=== PATIENT | female | born 1930 | race African-American/Black ===

== ENCOUNTER 2016-09-19 09:44 | Inpatient (IN) | payer OTHER, BC ==
[~2016-09-19] VITALS: Ht 149.9 cm; Wt 59.6 kg
--- NOTE | ~2016-09-19 | CARDNUC ---
[facility] Mario [employer] [place] [address] CARDIAC NUCLEAR IMAGING REPORT Name: KANIKA GARSIA Room #: 202-P [facility]#: [id number] Admission: 09/19/16 Attend Phys: Nathalie Bob MD Discharge: 09/20/16 Date of : 34 Date of Service: 09/20/16 1700 Report #: [id number] THIS REPORT FOR: //name// CC: Ron Bob DATE OF SERVICE: 09/20/2016 Myocardial perfusion imaging study using regadenoson. GENDER: Female. STUDY DATE: 09/20/2016. REFERRING DOCTOR: Ron Hutchinson MD. INDICATIONS: Chest pain. CORONARY HISTORY: None. CARDIOVASCULAR RISK FACTORS: Age, hypertension, hyperlipidemia. CARDIAC MEDICATIONS: Lotrel, aspirin and Lipitor. TYPE OF STUDY: The patient underwent a SPECT study. STRESS PROTOCOL: A total of 0.4 mg of regadenoson was injected intravenously, followed by Cardiolite. The patient did not ambulate during the procedure. HEMODYNAMIC DATA: The resting heart rate was 56 beats per minute, with a blood pressure 150/67 mmHg. Following regadenoson, the heart rate increased to 103 beats per minute and systolic blood pressure decreased to 133 mmHg. The patient had symptoms consistent with regadenoson, but no chest discomfort. ELECTROCARDIOGRAM: The resting electrocardiogram revealed sinus rhythm, nonspecific T-wave abnormalities. Following regadenoson, there were no significant arrhythmias or ST segment changes. PERFUSION IMAGING: Myocardial perfusion imaging was performed using Cardiolite, 11.5 mCi for the resting images and 35.4 mCi for the stress images. This was a same-day rest-stress imaging protocol. Gated SPECT images were obtained. Comparison of the post-pharmacologic stress and rest images revealed a mild, fixed defect in the distal anteroapical segment. The gated portion of the study revealed normal global and segmental LV systolic function. The fixed defect in the distal anteroapical segment may be related to a soft tissue artifact. [facility] [place] [address] CARDIAC NUCLEAR IMAGING REPORT Name: KANIKA GARSIA Room #: 202-P [facility] IN .R.#: [id number] Admission: 09/19/16 Attend Phys: Nathalie Bob MD Discharge: 09/20/16 Date of : 32 Date of Service: 09/20/16 170 Report #: [id number] IMPRESSION: 1. Clinical response, nondiagnostic. 2. Stress ECG response, nonischemic. 3. Perfusion imaging, nonischemic. 4. Ventricular function, normal. CONCLUSION: This study is of low probability for inducible ischemia. There is normal global and segmental LV systolic function. <ELECTRONICALLY SIGNED> By: Gui Phillips MD 09/21/16 1219 99 1720 Gui Phillips MD /tay
--- NOTE | ~2016-09-19 | EKG ---
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: Vanessa TORRES : 1930 Requested By: Moriah Guerrero Order Number: [id number] MD: Mello Staley Measurements Intervals [place] Rate: 76 P: 38 WV: 198 QRS: 52 QRSD: 92 T: 41 QT: 383 QTc: 431 Interpretive Statements Sinus rhythm Probable left atrial enlargement Abnormal R-wave progression, early transition Probable left ventricular hypertrophy Compared to ECG 04/01/2016 10:22:42 No significant changes Electronically Signed On 09-19-2016 16:47:34 SCHOOL STANDARDS COACH by Mello Staley [email or web address] <ELECTRONICALLY SIGNED> By: Mello Staley MD 09/19/16 [phone] 0952 Mello Staley MD /EPI
--- NOTE | ~2016-09-19 | 2DMMODE ---
[facility] [address] 2 D/M-MODE ECHOCARDIOGRAM Name: KANIKA GARSIA Room #: 202-P [facility] IN .R.#: [id number] Admission: 09/19/16 Attend Phys: Nathalie Bob MD Discharge: Date of : 32 Date of Service: 09/20/16 1139 Report #: [id number] THIS REPORT FOR: //name// Transthoracic Echocardiography Ordering physician: Nathalie Bob Referring physician: Ron Hutchinson My N. Neurophysiologist: Missy Merritt Indications/History: Elevated troponin. Hx: HTN, HLP BP: 149 / HR: 51bpm Height: 59in Weight: 131.7lb 76 Study data: M-mode, complete 2D, complete spectral Doppler, and color Doppler. Location: Echo laboratory. Routine. Image quality was adequate. 2D measurements Normal Normal LVID ED 42.4mm 36-57 IVS ED 10.7mm 6-11 LVID ES 29mm 23-40 LVPW ED 9.6mm 6-11 LA volume 41ml/m2 16-28 AoRoot diam 32.2mm 21-37 index ED LVOT diameter 20mm 18-23 Findings: Left ventricle: The cavity size was normal. There was mild focal basal hypertrophy of the septum significance unknown. Systolic function was normal. The estimated ejection fraction was in the range of 60% to 65%. Wall motion was normal. Right ventricle: The cavity size was normal. Systolic function was normal. Right atrium: The atrium was normal in size. Left atrium: The atrium was mildly dilated. Volume index: 41ml/m2 (S). Aortic valve: Mildly thickened, mildly calcified leaflets. Doppler: There was no stenosis. Trivial regurgitation. [place] [address] 2 D/M-MODE ECHOCARDIOGRAM Name: KANIKA GARSIA Room #: 202-P [facility] IN M.R.#: [id number] Admission: 09/19/16 Attend Phys: Nathalie Bob MD Discharge: Date of : 32 Date of Service: 09/20/16 1139 Report #: [id number] Peak velocity: 207.8cm/s (S). Peak gradient: 17.3mm Hg (S). Mitral valve: Mildly calcified annulus. Mildly thickened leaflets . Doppler: There was no evidence for stenosis. Mild regurgitation. Peak E-wave velocity: 73cm/s. Peak gradient: 2.1mm Hg (D). Peak A-wave velocity: 110.5cm/s. Tricuspid valve: Structurally normal valve. Doppler: There was no evidence for stenosis. Mild regurgitation. Regurgitant peak velocity: 272cm/s. Peak RV-RA gradient: 30mm Hg (S). Pulmonic valve: Structurally normal valve. Doppler: There was no evidence for stenosis. Trivial regurgitation. Pericardium: There was no pericardial effusion. Aorta: Aortic root: The aortic root was normal in size. Pulmonary artery: Systolic pressure was estimated to be 35mm Hg. Diastolic function: Doppler parameters are consistent with abnormal left ventricular relaxation (grade 1 diastolic dysfunction). Systemic veins: Inferior vena cava: The vessel was normal in size; the respirophasic diameter changes were in the normal range (= 50%). Conclusions 1. Left ventricle: The cavity size was normal. There was mild focal basal hypertrophy of the septum significance unknown. Systolic function was normal. The estimated ejection fraction was in the range of 60% to 65%. 2. Left atrium: The atrium was mildly dilated. 3. Aortic valve: Mildly thickened, mildly calcified leaflets. Trivial regurgitation. 4. Mitral valve: Mildly calcified annulus. Mildly thickened leaflets . Mild regurgitation. 5. Pulmonic valve: Trivial regurgitation. 6. Tricuspid valve: Mild regurgitation. 7. Pulmonary arteries: Systolic pressure was estimated to be 35mm Hg. <ELECTRONICALLY SIGNED> By: Jamin Hernandez MD 09/20/16 1438 1139 1438 Jamin Hernandez MD /nicki
--- NOTE | ~2016-09-19 | D ---
[facility] [address] DISCHARGE SUMMARY Name: KANIKA GARSIA Room #: 202-P [facility] IN M.R.#: [id number] Admission: 09/19/16 Attend Phys: Nathalie Bob MD Discharge: 09/20/16 Date of : 32 Report #: [id number] THIS REPORT FOR: //name// CC: Ron Bob DATE OF SERVICE: 09/20/2016 DATE OF ADMISSION: 09/19/2016. DATE OF DISCHARGE: 09/20/2016. PRIMARY CARE PHYSICIAN: Ron Hutchinson M.D. DISCHARGE DIAGNOSES: 1. Mid epigastric pain secondary to ileus and constipation. 2. Hypertension. 3. Dyslipidemia. CONSULTATIONS: Cardiology. PROCEDURES: She had a Lexiscan done that was low probability for ischemia. She had an echocardiogram that showed EF of 60% and PA pressure of 35 mmHg. HOSPITAL COURSE: The patient is an 85-year-old female with a history of hypertension and dyslipidemia, who presented to the ER secondary to mid epigastric pain. Please see details of admission dictated by myself on 09/19. Workup in the ER revealed a negative EKG, but a troponin of 0.8. She was admitted for potential cardiac etiology. Cardiology was consulted. She had a Lexiscan that was low probability for ischemia and an echocardiogram that showed no significant abnormalities. Cardiology did not feel that it was cardiac related. Further workup and details were more suggestive of a GI etiology. She had abdominal x-ray that showed primary bowel gas, suggestive of mild ileus without obstruction as well as moderate amount of fecal material, suggestive of constipation. She was started on aggressive bowel regimen and clear liquid diet. Over the course of the 24 hours, her symptoms improved and she was eating better and her symptoms resolved as well. At that point, she was cleared for discharge to home. DISCHARGE DISPOSITION: To home. DISCHARGE PHYSICAL EXAMINATION: VITAL SIGNS: Temperature of 37, pulse of 58 and blood pressure 168/79. GENERAL: She is awake, alert, answering question appropriately, in no acute respiratory distress. [address] [address] DISCHARGE SUMMARY Name: KANIKA GARSIA KASANDRA Room #: 202-P [facility] IN M.R.#: [id number] Admission: 09/19/16 Attend Phys: Nathalie Bob MD Discharge: 09/20/16 Date of : 32 Report #: [id number] HEENT: Normocephalic, atraumatic. Pupils equal. NECK: Supple. CARDIOVASCULAR: Regular rate and rhythm. No murmurs. LUNGS: Clear to auscultation bilaterally. No crackles or wheezes. ABDOMEN: Soft. No distention or tenderness. EXTREMITIES: No edema. NEUROLOGIC: Nonfocal. DISCHARGE MEDICATIONS: Tylenol p.r.n., Lotrel 5/10 one daily, vitamin D 2000 units daily, aspirin 81 daily and atorvastatin 10 daily. DISCHARGE INSTRUCTIONS: Followup CBC, BMP and abdominal x-ray in 1 week. Follow up with primary care in 1 week and to seek immediate medical attention if symptoms worsen or recur or if she has any significant medical concerns. Discharge plan took 35 minutes. <ELECTRONICALLY SIGNED> By: Nathalie Bob MD 11/11/16 1053 1056 1227 Nathalie Bob MD /nt
--- NOTE | ~2016-09-19 | H ---
[facility] [place] [address] HISTORY AND PHYSICAL Name: KANIKA GARSIA Room #: 202-P [facility] IN M.R.#: [id number] Admission: 09/19/16 Attend Phys: Nathalie Bob MD Discharge: 09/20/16 Date of : 32 Report #: [id number] THIS REPORT FOR: //name// CC: Ron Bob DATE OF SERVICE: 09/19/2016 PRIMARY CARE DOCTOR: Ron Hutchinson MD CHIEF COMPLAINT: Midepigastric pain. HISTORY OF PRESENT ILLNESS: The patient is an 85-year-old female with a history of hypertension and dyslipidemia, presented to the ER secondary to midepigastric pain. She indicates that her symptoms started Friday afternoon with discomfort and nausea. She did not make much effort, but then on Friday morning she woke up with similar symptoms. She reported decrease in oral intake as well as chills. Because of her persistent symptoms, she came in this morning. She also reports some left arm aching this morning as well, but no shortness of breath or cold sweats. She denies any diarrhea. Workup in the ER includes a set of cardiac enzymes that were mildly elevated. She denies any prior history of cardiac disease. Since coming to the hospital, she indicates that she is doing much better. She has had minimal interventions since she has been here. She herself feels that she has the stomach flu. PAST MEDICAL HISTORY: Significant for hypertension, dyslipidemia, osteoarthritis and benign right breast lump removed 1953. SURGICAL HISTORY: She has had bilateral TMJ surgery and breast lumpectomy as above. SOCIAL HISTORY: She quit smoking in 67, drinks very rarely, lives independently. Her closest relative is her daughter. FAMILY HISTORY: Mom at 74 of cancer. Father's history is unknown. REVIEW OF SYSTEMS: A 14-point review of systems was conducted, all negative except for above. CURRENT MEDICATIONS: Include Tylenol p.r.n., Lotrel 5/10 mg one daily, aspirin 325 daily, Lipitor 10 daily and vitamin D 2000 units daily. ALLERGIES: None. PHYSICAL EXAMINATION: [facility] [address] [place] [address] HISTORY AND PHYSICAL Name: KANIKA GARSIA KASANDRA Room #: 202-P [facility].#: [id number] Admission: 09/19/16 Attend Phys: Nathalie Bob MD Discharge: 09/20/16 Date of : 32 Report #: [id number] VITAL SIGNS: Temp of 98, pulse of 32, blood pressure 119/65 and O2 sat 98% on room air. GENERAL: She is awake, alert and answering questions appropriately, in no acute respiratory distress. HEENT: Normocephalic and atraumatic. Pupils are equal. NECK: Supple. CARDIOVASCULAR: Regular rate and rhythm. No murmurs. LUNGS: Clear to auscultation bilaterally. No crackles or wheeze. ABDOMEN: Soft. No distention or tenderness. EXTREMITIES: No edema. NEUROLOGIC: Nonfocal. LABORATORIES AND TESTING: Chest x-ray is negative. CBC is negative. BMP is negative. Troponin is slightly elevated. EKG showed no significant abnormalities. ASSESSMENT AND PLAN: 1. Midepigastric pain. Suspect this is largely gastrointestinal related; therefore, we will start her on some Pepcid and gastrointestinal cocktail; however, due to her elevated troponin, we will get serial troponins, continue aspirin, low-lose beta-blockers if she can tolerate it and do a stress testing in the morning. If this is negative, we would likely discharge her home with supportive care for her suspected gastrointestinal issues. 2. Hypertension. I am going to hold her blood pressure medications and put her on a low-dose beta-torres for now, and if her stress test is negative, resume her previous home medication. 3. Dyslipidemia. Continue the same. Check a fasting lipid panel. 4. Deep venous thrombosis prophylaxis with Lovenox. <ELECTRONICALLY SIGNED> By: Nathalie Bob MD 10/15/162009 2049 6107 Nathalie Bob MD /nt
[~2016-09-19 09:44] MED LIST: AMOXICILLIN 50500 M1 PO; APAP500 PO; ASPIRIN325 PO; ASPIRIN81 MG PO; CHERATUSSIN AC118 ML PO; HYDROCHLOROTHIA25 M2 PO; KLOR-CON 1010 MEQ PO; LIPITOR10 MG PO; LISINOPRIL10 MG PO; LOTREL 5-10 MG1 EACH PO; MIRALAX17 GM PO; NASONEX17 GM NS; NORCO 5-325 TA1 EACH PO; POTASSIUM20 PO; TYLENOL EX-STR500 M2 PO; VITAMIN D2000 UNI1 PO
[2016-09-19 09:45] VITALS: BP 130/72
[2016-09-19 10:05] LABS: ABSOLUTE NEUTROPHILS 3.2 thou/uL (1.4-8.2); BASOPHILS 0.6 % (0.0-2.0); EOSINOPHILS 0.5 % (0.0-3.0); HEMATOCRIT 38.7 % (37.0-47.0); HEMOGLOBIN 12.8 gm/dL (12.0-15.0); LYMPHOCYTES 17.3 % (24.0-44.0); MCV 93.7 fL (80.0-100.0); MONOCYTES 4.8 % (1.0-8.0); PLATELET COUNT 227 thou/uL (150-400); POLYS 76.8 % (36.0-66.0); RBC 4.14 mil/uL (4.20-5.00); RDW 12.6 % (10.5-14.5); WBC 4.1 thou/uL (4.0-11.0)
[2016-09-19 10:10] LABS: MANUAL DIFF NO
[2016-09-19 10:13] LABS: CALCIUM 10.1 mg/dL (8.5-10.1); POTASSIUM 3.5 mmol/L (3.5-5.1)
[2016-09-19 10:16] LABS: URINE BILIRUBIN 1+ (Negative); URINE BLOOD TRACE (Negative); URINE COLOR YELLOW; URINE GLUCOSE-RANDOM* NEGATIVE (Negative); URINE KETONES 1+ (Negative); URINE LEUKOCYTES-REFLEX NEGATIVE (Negative); URINE PROTEIN (DIPSTICK) 1+ (Negative); URINE SPECIFIC GRAVITY >= 1.030 (1.003-1.035); URINE UROBILINOGEN 0.2 E.U./dl (0.2-1.0)
[2016-09-19 10:18] LABS: ICTOTEST (BILI CONFIRMATORY) Negative (Negative)
[2016-09-19 10:23] LABS: ALBUMIN 4.1 g/dL (3.4-5.0); TOTAL BILIRUBIN 0.6 mg/dL (<0.1-1.0); TOTAL PROTEIN 7.4 g/dL (6.4-8.2); TROPONIN-I 0.08 ng/mL (<0.04-0.07)
[2016-09-19 10:35] LABS: CRYSTALS None Seen /LPF (None Seen); HYALINE CASTS 4-10 Moderate /LPF (None Seen); SQUAMOUS None Seen /LPF (0-3); URINE RBC 0-2 Rare /HPF (0-2); URINE WBC-REFLEX 0-5 Rare /HPF (0-5)
[2016-09-19 11:19] VITALS: BP 145/79
[2016-09-19 12:00] VITALS: BP 120/70
[2016-09-19 16:00] VITALS: BP 137/68
[2016-09-19 19:26] VITALS: BP 119/65
[2016-09-19 23:35] VITALS: BP 126/70
[2016-09-20 03:37] VITALS: BP 126/58
[2016-09-20 04:31] LABS: ABSOLUTE NEUTROPHILS 1.3 thou/uL (1.4-8.2); BASOPHILS 0.6 % (0.0-2.0); EOSINOPHILS 2.8 % (0.0-3.0); HEMATOCRIT 34.8 % (37.0-47.0); HEMOGLOBIN 11.4 gm/dL (12.0-15.0); LYMPHOCYTES 47.6 % (24.0-44.0); MCH 31.4 pg (26.0-34.0); MCHC 32.7 % (28.0-37.0); PLATELET COUNT 193 thou/uL (150-400); RBC 3.63 mil/uL (4.20-5.00); WBC 3.6 thou/uL (4.0-11.0)
[2016-09-20 04:32] LABS: MANUAL DIFF NO
[2016-09-20 07:00] VITALS: BP 149/76
[2016-09-20 16:00] VITALS: BP 168/79
[2016-09-20 17:17] VITALS: BP 168/79
== END 2016-09-20 17:45 | disposition home or self-care (01) | DRG 389 ==
LOC: ER 09:44 → EROBS 10:59 → 2N 10:59
PROVIDERS: Family Medicine; Physician Assistant
DX: K56.7 Ileus, unspecified (principal); E87.1 Hypo-osmolality and hyponatremia; R10.13 Epigastric pain; E78.5 Hyperlipidemia, unspecified; M19.90 Unspecified osteoarthritis, unspecified site; I10 Essential (primary) hypertension; E78.00 Pure hypercholesterolemia, unspecified; Z79.899 Other long term (current) drug therapy; Z79.82 Long term (current) use of aspirin; Z98.890 Other specified postprocedural states; Z87.891 Personal history of nicotine dependence; Z80.9 Family history of malignant neoplasm, unspecified; Z23 Encounter for immunization
CPT/HCPCS: 10081

== ENCOUNTER 2017-03-15 11:51 | Emergency (ER) | payer OTHER, BC ==
[~2017-03-15] VITALS: Ht 149.9 cm; Wt 59.0 kg
--- NOTE | ~2017-03-15 | EKG ---
[place] [address] [place] [address] ELECTROCARDIOGRAM REPORT Name: KANIKA GARSIA KASANDRA Room #: [facility]P [facility]#: [id number] Admission: 03/15/17 Attend Phys: Discharge: 03/15/17 Date of : 32 Report #: [id number] THIS REPORT FOR: //name// [facility] ED Test Date: 2017-03-15 Test Time: 12:12:50 Pat Name: KANIKA GARSIA Department: Room: Gender: F Cyber Security Engineer: Maritza HARRISON : 1930 Requested By: Arron Goldberg Order Number: [id number] MD: Rohan Mcdermott Measurements Intervals [place] Rate: 84 P: 31 [place]: 182 QRS: 36 QRSD: 86 T: 22 QT: 375 QTc: 444 Interpretive Statements Sinus rhythm Abnormal R-wave progression, early transition Consider left ventricular hypertrophy Compared to ECG 09/19/2016 09:52:19 No significant changes Electronically Signed On 03-17-2017 9:11:35 CDT by Rohan Mcdermott [email or web address] <ELECTRONICALLY SIGNED> By: Rohan Mcdermott MD, [facility] 03/17/17 0911 11 11 Rohan Mcdermott MD, [facility] /EPI
[2017-03-15 13:15] LABS: ABSOLUTE NEUTROPHILS 2.6 thou/uL (1.4-8.2); BASOPHILS 0.8 % (0.0-2.0); EOSINOPHILS 0.6 % (0.0-3.0); HEMATOCRIT 38.3 % (37.0-47.0); HEMOGLOBIN 12.6 gm/dL (12.0-15.0); LYMPHOCYTES 23.8 % (24.0-44.0); MCH 31.4 pg (26.0-34.0); MCHC 32.9 g/dL (28.0-37.0); MCV 95.4 fL (80.0-100.0); MONOCYTES 7.9 % (1.0-8.0); PLATELET COUNT 197 thou/uL (150-400); POLYS 66.9 % (36.0-66.0); RBC 4.01 mil/uL (4.20-5.00); RDW 12.8 % (10.5-14.5); WBC 3.9 thou/uL (4.0-11.0)
[2017-03-15 13:22] LABS: MANUAL DIFF NO
[2017-03-15 13:28] LABS: CALCIUM 9.5 mg/dL (8.5-10.1); CREATININE 0.8 mg/dL (0.6-1.0); POTASSIUM 4.1 mmol/L (3.5-5.1)
[2017-03-15 13:39] LABS: TROPONIN-I 0.06 ng/mL (<0.04-0.07)
== END 2017-03-15 15:13 | disposition home or self-care (01) ==
LOC: ER 11:51
PROVIDERS: Emergency Medicine
DX: R07.89 Other chest pain (principal); I10 Essential (primary) hypertension; E78.00 Pure hypercholesterolemia, unspecified; F10.99 Alcohol use, unspecified with unspecified alcohol-induced disorder; Z79.82 Long term (current) use of aspirin; Z98.890 Other specified postprocedural states

== ENCOUNTER 2018-02-09 01:01 | Emergency (ER) | payer OTHER, BC ==
[~2018-02-09] VITALS: Ht 149.9 cm; Wt 59.0 kg
[2018-02-09] MEDS ORDERED: IRON325 PO (01:17)
[2018-02-09] MEDS ORDERED: FLAGYL500 MG PO (01:45)
[2018-02-09] MEDS ORDERED: CIPROFLOXACIN500 M1 PO (01:45)
[2018-02-09] MEDS ORDERED: HYDROCORTISONE30 G9 RECTAL (01:45)
== END 2018-02-09 02:15 | disposition home or self-care (01) ==
LOC: ER 01:01
DX: K62.5 Hemorrhage of anus and rectum (principal); K57.92 Diverticulitis of intestine, part unspecified, without perforation or abscess without bleeding; I10 Essential (primary) hypertension; E78.00 Pure hypercholesterolemia, unspecified; Z87.891 Personal history of nicotine dependence

== ENCOUNTER 2018-03-01 11:41 | Emergency (ER) | payer OTHER, BC ==
[~2018-03-01] VITALS: Ht 149.9 cm; Wt 60.3 kg
[~2018-03-01 11:41] MED LIST changes: +CIPROFLOXACIN500 M1 PO; +FLAGYL500 MG PO; +HYDROCORTISONE30 G9 RECTAL; +IRON325 PO
[2018-03-01] MEDS ORDERED: SENNA8.6 MG PO (12:14)
[2018-03-01] MEDS ORDERED: NYSTATIN 100,0015 G1 TOP (12:14)
[2018-03-01] MEDS ORDERED: ANUSOL-HC25 MG RECTAL (12:24)
== END 2018-03-01 12:29 | disposition home or self-care (01) ==
LOC: ER 11:41
DX: L22 Diaper dermatitis (principal); K59.00 Constipation, unspecified; K64.9 Unspecified hemorrhoids; I10 Essential (primary) hypertension; E78.00 Pure hypercholesterolemia, unspecified

== ENCOUNTER 2018-03-23 13:10 | Emergency (ER) | payer OTHER, BC ==
[~2018-03-23] VITALS: Ht 149.9 cm; Wt 59.0 kg
--- NOTE | ~2018-03-23 | EKG ---
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: GRIS : 1930 Requested By: Alfie Bernabe Order Number: [id number] MD: Rohan Mcdermott Measurements Intervals [place] Rate: 73 P: 23 NE: 191 QRS: 42 QRSD: 94 T: 33 QT: 387 QTc: 427 Interpretive Statements Sinus rhythm Abnormal R-wave progression, early transition Probable left ventricular hypertrophy Compared to ECG 03/15/2017 12:12:50 No significant changes Electronically Signed On 03-23-2018 17:08:57 CDT by Rohan cMdermott [email or web address] <ELECTRONICALLY SIGNED> By: Rohan Mcdermott MD, [facility] 03/23/18 1708 1338 37 Rohan Mcdermott MD, FAC /EPI
[~2018-03-23 13:10] MED LIST changes: +ANUSOL-HC25 MG RECTAL; +NYSTATIN 100,0015 G1 TOP; +SENNA8.6 MG PO
[2018-03-23 14:15] LABS: URINE BILIRUBIN NEGATIVE (Negative); URINE BLOOD NEGATIVE (Negative); URINE CLARITY CLEAR; URINE COLOR YELLOW; URINE GLUCOSE-RANDOM* NEGATIVE (Negative); URINE KETONES TRACE (Negative); URINE NITRITE-REFLEX NEGATIVE (Negative); URINE PROTEIN (DIPSTICK) TRACE (Negative); URINE SPECIFIC GRAVITY <= 1.005 (1.005-1.035); URINE UROBILINOGEN 0.2 E.U./dl (0.2-1.0)
[2018-03-23 14:16] LABS: URINE LEUKOCYTES-REFLEX 1+ (Negative)
[2018-03-23 14:24] LABS: SQUAMOUS >10 Many /LPF (0-3); URINE RBC 0-2 Rare /HPF (0-2); URINE WBC-REFLEX 6-15 Few /HPF (0-5)
[2018-03-23 14:25] LABS: BACTERIA-REFLEX None Seen /HPF (None Seen); CRYSTALS None Seen /LPF (None Seen); HYALINE CASTS 4-10 Moderate /LPF (None Seen)
[2018-03-23 14:29] LABS: ABSOLUTE NEUTROPHILS 1.7 thou/uL (1.4-8.2); BASOPHILS 0.9 % (0.0-2.0); EOSINOPHILS 1.4 % (0.0-3.0); HEMATOCRIT 37.9 % (37.0-47.0); HEMOGLOBIN 12.6 gm/dL (12.0-15.0); LYMPHOCYTES 29.8 % (24.0-44.0); MCHC 33.2 g/dL (28.0-37.0); MCV 93.4 fL (80.0-100.0); MONOCYTES 11.2 % (1.0-8.0); PLATELET COUNT 212 thou/uL (150-400); POLYS 56.7 % (36.0-66.0); RBC 4.06 mil/uL (4.20-5.00); RDW 12.7 % (10.5-14.5)
[2018-03-23 14:38] LABS: CALCIUM 10.2 mg/dL (8.5-10.1); CREATININE 1.1 mg/dL (0.6-1.0); POTASSIUM 3.4 mmol/L (3.5-5.1)
[2018-03-23 14:46] LABS: ALBUMIN 4.5 g/dL (3.4-5.0); TOTAL BILIRUBIN 0.4 mg/dL (<0.1-1.0); TOTAL PROTEIN 8.1 g/dL (6.4-8.2); TROPONIN-I 0.08 ng/mL (<0.06)
[2018-03-23] MEDS ORDERED: MIRALAX17 GM PO (16:47)
[2018-03-23] MEDS ORDERED: PEPCID20 MG PO (16:52)
== END 2018-03-23 17:01 | disposition home or self-care (01) ==
LOC: ER 13:10
PROVIDERS: Physician Assistant
DX: K21.9 Gastro-esophageal reflux disease without esophagitis (principal); K59.00 Constipation, unspecified; I10 Essential (primary) hypertension; E78.00 Pure hypercholesterolemia, unspecified; Z85.3 Personal history of malignant neoplasm of breast; Z90.10 Acquired absence of unspecified breast and nipple; Z87.891 Personal history of nicotine dependence

== ENCOUNTER 2018-10-06 09:29 | Inpatient (IN) | payer OTHER, BC ==
[~2018-10-06] VITALS: Ht 167.6 cm; Wt 57.6 kg
[~2018-10-06 09:29] MED LIST changes: +PEPCID20 MG PO
[2018-10-06 09:34] VITALS: BP 144/82
[2018-10-06 09:53] LABS: HEMATOCRIT 40.6 % (37.0-47.0); HEMOGLOBIN 13.5 gm/dL (12.0-15.0); MCH 31.2 pg (26.0-34.0); MCHC 33.3 g/dL (28.0-37.0); MCV 93.9 fL (80.0-100.0); PLATELET COUNT 179 thou/uL (150-400); RBC 4.32 mil/uL (4.20-5.00); RDW 13.3 % (10.5-14.5); WBC 4.7 thou/uL (4.0-11.0)
[2018-10-06 10:24] LABS: CALCIUM 9.8 mg/dL (8.5-10.1); CREATININE 0.9 mg/dL (0.6-1.0); POTASSIUM 3.6 mmol/L (3.5-5.1)
[2018-10-06 10:32] LABS: ALBUMIN 3.8 g/dL (3.4-5.0); TOTAL BILIRUBIN 0.4 mg/dL (<0.1-1.0); TOTAL PROTEIN 7.3 g/dL (6.4-8.2); TROPONIN-I 0.08 ng/mL (<0.06)
[2018-10-06 10:39] LABS: ABSOLUTE NEUTROPHILS 3.7 thou/uL (1.4-8.2)
[2018-10-06 12:31] VITALS: BP 145/82
[2018-10-06 12:45] VITALS: BP 164/71
[2018-10-06 13:48] VITALS: BP 166/80
--- NOTE | 2018-10-06 15:58 | NUR ---
ASSUMED CARE OF PT AT 1300 THIS SHIFT. PT HAS BEEN COOPERATIVE, HAS DENIED ANY PAIN THIS SHIFT. PT HAS BEEN HAVING LEFT ARM NUMBNESS AND ABDOMINAL PAIN ON AND OFF FOR A PERIOD OF WEEKS. ASSESSMENTS ARE DOCUMENTED. EDUCATION WAS PROVIDED, PT HAS HAD FAMILY VISIT THIS SHIFT. PLAN OF CARE IS TO CONTINUE TO MONITOR CLOSELY AT THIS TIME.
[2018-10-06 16:40] VITALS: BP 131/82
[2018-10-06 20:13] VITALS: BP 145/67
[2018-10-07 04:50] VITALS: BP 146/88
[2018-10-07 05:15] LABS: CALCIUM 9.7 mg/dL (8.5-10.1)
--- NOTE | 2018-10-07 08:07 | EKG ---
[place] [address] [address] [employer] [place] [address] ELECTROCARDIOGRAM REPORT Name: KANIKA GARSIA Room #: 214-P ADM IN M.R.#: [id number] Admission: 10/06/18 Attend Phys: Gregg Mooney MD Discharge: Date of : 32 Report #: [id number] THIS REPORT FOR: //name// [facility] ED Test Date: 2018-10-06 Test Time: 09:46:41 Pat Name: KANIKA GARSIA Department: Room: 214 Gender: F Head Pumper: : 1930 Requested By: Moriah Guerrero Order Number: [id number] MD: Rohan Mcdermott Measurements Intervals [place] Rate: 79 P: 19 VT: 186 QRS: 41 QRSD: 86 T: 37 QT: 388 QTc: 445 Interpretive Statements Sinus rhythm Probable left atrial enlargement Abnormal R-wave progression, early transition Probable left ventricular hypertrophy Compared to ECG 03/23/2018 13:38:22 No significant changes Electronically Signed On 10-07-2018 8:07:02 WATER CHEMIST by Rohan Mcdermott [email or web address] <ELECTRONICALLY SIGNED> By: Rohan Mcdermott MD, [facility] [address] 5 5 Rohan Mcdermott MD, [facility] /EPI
[2018-10-07 08:30] VITALS: BP 147/84
--- NOTE | 2018-10-07 11:08 | 2DMMODE ---
[facility] [address] [place] [address] 2 D/M-MODE ECHOCARDIOGRAM Name: KANIKA GARSIA Room #: 214-P [facility] IN M.R.#: [id number] Admission: 10/06/18 Attend Phys: Gregg Mooney MD Discharge: Date of : 34 Date of Service: 10/07/18 1108 Report #: [id number] THIS REPORT FOR: //name// APPROVED REPORT Study performed: 10/07/2018 10:06:17 EXAM: Comprehensive 2D, Doppler, and color-flow Echocardiogram Patient Location: Echo lab Room #: 214 Status: routine BSA: 1.63 HR: 56 bpm BP: 147/84 mmHg Rhythm: NSR/PVCs Other Information Study Quality: Good Indications Hypertension. 2D Dimensions RVDd: 36.42 mm IVSd: 8.95 (7-11mm) LVOT Diam: 20.37 (18-24mm) LVDd: 41.85 mm PWd: 8.00 (7-11mm) Ascending Ao: 35.07 (22-36mm) LVDs: 28.88 (25-40mm) Aortic Root: 32.25 mm Volumes Left Atrial Volume (Systole) Single Plane 4CH: 51.42 mL Single Plane 2CH: 47.18 mL LA ESV Index: 31.00 mL/m2 Aortic Valve AoV Peak Daniele.: 2.13 m/s AO Peak Gr.: 15.47 mmHg LVOT Max P.86 mmHg AO Mean Gr.: 9.24 mmHg AO V2 Mean: 1.42 m/s LVOT Max V: 1.31 m/s AO V2 VTI: 47.28 cm FREDI Vmax: 2.01 cm2 Mitral Valve E/A Ratio: 0.8 MV Decel. Time: 274.02 ms [facility] [place] [address] 2 D/M-MODE ECHOCARDIOGRAM Name: GARSIAKANIKA Room #: 214-P ADM IN M.R.#: [id number] Admission: 10/06/18 Attend Phys: Gregg Mooney MD Discharge: Date of : 34 Date of Service: 10/07/18 1108 Report #: [id number] MV E Max Daniele.: 0.74 m/s MV A Daniele.: 0.97 m/s MV PHT: 79.47 ms IVRT: 101.50 ms Pulmonary Valve PV Peak Daniele.: 1.14 m/s PV Peak Gr.: 5.23 mmHg Pulmonary Vein P Vein S: 0.65 m/s P Vein A: 0.32 m/s P Vein D: 0.42 m/s P Vein A Dur.: 147.6 msec P Vein S/D Ratio: 1.55 Tricuspid Valve TR Peak Daniele.: 2.85 m/s RAP Estimate: 5.00 mmHg TR Peak Gr.: 32.40 mmHg PA Pressure: 37.00 mmHg Left Ventricle The left ventricle is normal size. There is normal LV segmental wall motion. There is normal left ventricular wall thickness. Left ventricular systolic function is normal. LVEF is 60-65%. Mild diastolic dysfunction is present (impaired relaxation pattern). Right Ventricle The right ventricle is normal size. The right ventricular systolic function is normal. Atria The left atrium size is normal. The right atrium size is normal. Aortic Valve Aortic valve is mildly thickened and calcified. Trace aortic regurgitation. There is no aortic valvular stenosis. Mitral Valve The mitral valve is normal in structure. Mild mitral annular calcification. Mild mitral regurgitation. No evidence of mitral valve stenosis. Tricuspid Valve The tricuspid valve is normal in structure. Mild to moderate tricuspid regurgitation. [address] [address] 2 D/M-MODE ECHOCARDIOGRAM Name: KANIKA GARSIA Room #: 214-P [facility] IN M.R.#: [id number] Admission: 10/06/18 Attend Phys: Gregg Mooney MD Discharge: Date of : 32 Date of Service: 10/07/18 1108 Report #: [id number] Estimated PAP is 35-40mmHg. Pulmonic Valve The pulmonary valve is normal in structure. Trace pulmonic regurgitation. Great Vessels The aortic root is normal in size. IVC is normal in size and collapses >50% with inspiration. Pericardium There is no pericardial effusion. <Conclusion> The left ventricle is normal size. There is normal left ventricular wall thickness. Left ventricular systolic function is normal. Mild diastolic dysfunction is present (impaired relaxation pattern). The right ventricle is normal size. The left atrium size is normal. Aortic valve is mildly thickened and calcified. Trace aortic regurgitation. There is no aortic valvular stenosis. Mild mitral regurgitation. Mild to moderate tricuspid regurgitation. Estimated PAP is 35-40mmHg. <ELECTRONICALLY SIGNED> By: Gui Phillips MD 10/07/18 1108 1108 1108 Gui Phillips MD /INF
[2018-10-07 11:48] VITALS: BP 136/79
[2018-10-07 12:45] VITALS: BP 136/79
--- NOTE | 2018-10-07 13:35 | NUR ---
PT CARE ASSUMED APPROX 0700. PT ALERT AND ORIENTED X4. DENIED PAIN AND SOA. VSS. PT DISCHARGED HOME THIS SHIFT TO SELF CARE. DISCHARGE PAPERWORK REVIEWED WITH PT AND SHE DENIES QUESTIONS OR CONCERNS REGARDING DISCHARGE MEDS, F/U APPTS, SCRIPTS, DIET, ACTIVITY LEVEL AND GENERAL POST HOSPITAL CARE. IV OUT, TELE BOX OFF. PT'S GRANDSON PROVIDED TRANSPORTATION HOME IN PERSONAL VEHICLE. HOSPITAL STAFF ESCORTED PT OUT WITHOUT ISSUE.
== END 2018-10-07 13:36 | disposition home or self-care (01) | DRG 551 ==
LOC: ER 09:29 → EROBS 11:26 → 2N 11:26 → ENTRNSPT 10-07 13:25 → EDTRNSPTSTS 10-07 13:26 → 2N 10-07 13:36
PROVIDERS: Physician Assistant; ADMIT Hospitalist
DX: M47.22 Other spondylosis with radiculopathy, cervical region (principal); E43 Unspecified severe protein-calorie malnutrition; I10 Essential (primary) hypertension; E78.00 Pure hypercholesterolemia, unspecified; M62.84 Sarcopenia; K21.9 Gastro-esophageal reflux disease without esophagitis; Z87.891 Personal history of nicotine dependence; Z79.82 Long term (current) use of aspirin; Z79.899 Other long term (current) drug therapy
CPT/HCPCS: 10081

== ENCOUNTER 2019-05-17 10:05 | Emergency (ER) | payer OTHER, BC ==
[~2019-05-17] VITALS: Ht 154.9 cm; Wt 63.5 kg
[~2019-05-17 10:05] MED LIST changes: +TRAMADOL 50 MG50 MG PO
[2019-05-17 10:07] VITALS: BP 146/88
[2019-05-17] MEDS ORDERED: TYLENOL EXTRA500 MG PO (11:04)
== END 2019-05-17 11:07 | disposition home or self-care (01) ==
LOC: ER 10:05
DX: S92.342A Displaced fracture of fourth metatarsal bone, left foot, initial encounter for closed fracture (principal); S90.212A Contusion of left great toe with damage to nail, initial encounter; S90.221A Contusion of right lesser toe(s) with damage to nail, initial encounter; I10 Essential (primary) hypertension; E78.00 Pure hypercholesterolemia, unspecified; Z98.890 Other specified postprocedural states; Z86.018 Personal history of other benign neoplasm; Z87.891 Personal history of nicotine dependence; W18.39XA Other fall on same level, initial encounter; Y92.89 Other specified places as the place of occurrence of the external cause; Y93.89 Activity, other specified; Y99.8 Other external cause status

== ENCOUNTER 2019-08-02 06:38 | Emergency (ER) | payer OTHER, BC ==
[~2019-08-02] VITALS: Ht 149.9 cm; Wt 59.0 kg
[~2019-08-02 06:38] MED LIST changes: +TYLENOL EXTRA500 MG PO
[2019-08-02 07:50] LABS: ABSOLUTE NEUTROPHILS 3.9 thou/uL (1.4-8.2); BASOPHILS 0.3 % (0.0-2.0); EOSINOPHILS 1.2 % (0.0-3.0); HEMATOCRIT 35.9 % (37.0-47.0); HEMOGLOBIN 11.8 gm/dL (12.0-15.0); LYMPHOCYTES 14.7 % (24.0-44.0); MCH 31.6 pg (26.0-34.0); MCHC 32.9 g/dL (28.0-37.0); PLATELET COUNT 199 thou/uL (150-400); POLYS 78.8 % (36.0-66.0); RBC 3.74 mil/uL (4.20-5.00); RDW 12.9 % (10.5-14.5); WBC 4.9 thou/uL (4.0-11.0)
[2019-08-02 07:52] LABS: CALCIUM 9.3 mg/dL (8.5-10.1); CREATININE 1.1 mg/dL (0.6-1.0); POTASSIUM 3.9 mmol/L (3.5-5.1)
[2019-08-02 07:59] LABS: ALBUMIN 3.9 g/dL (3.4-5.0); APTT 26.7 Seconds (24.5-32.8); PROTIME 9.9 Seconds (9.3-11.4); TOTAL BILIRUBIN 0.3 mg/dL (<0.1-1.0)
[2019-08-02] MEDS ORDERED: ANUSOL-HC25 MG RECTAL (09:40)
[2019-08-02 10:18] VITALS: BP 131/84
== END 2019-08-02 10:20 | disposition home or self-care (01) ==
LOC: ER 06:38
PROVIDERS: Emergency Medicine
DX: K64.4 Residual hemorrhoidal skin tags (principal); R19.7 Diarrhea, unspecified; I10 Essential (primary) hypertension; E78.00 Pure hypercholesterolemia, unspecified; Z87.891 Personal history of nicotine dependence

== ENCOUNTER 2020-10-30 12:23 | Emergency (ER) | payer OTHER, BC ==
[~2020-10-30] VITALS: Ht 149.9 cm; Wt 59.0 kg
[2020-10-30 14:01] LABS: URINE BILIRUBIN NEGATIVE (Negative); URINE BLOOD NEGATIVE (Negative); URINE CLARITY CLEAR; URINE COLOR YELLOW; URINE GLUCOSE-RANDOM* NEGATIVE (Negative); URINE KETONES NEGATIVE (Negative); URINE NITRITE-REFLEX NEGATIVE (Negative); URINE PROTEIN (DIPSTICK) NEGATIVE (Negative); URINE UROBILINOGEN 0.2 E.U./dl (0.2-1.0)
[2020-10-30 14:03] LABS: URINE LEUKOCYTES-REFLEX 1+ (Negative)
[2020-10-30 14:11] LABS: SQUAMOUS 0-3 Few /LPF (0-3)
[2020-10-30 14:12] LABS: CASTS None Seen /LPF (None Seen); MUCUS 0-3 Light strn/LPF (None Seen)
[2020-10-30 14:13] LABS: BACTERIA-REFLEX 1-9 Few /HPF (None Seen); CRYSTALS None Seen /LPF (None Seen); URINE RBC 0-2 Rare /HPF (0-2); URINE WBC-REFLEX 0-5 Rare /HPF (0-5); WBC CLUMPS Occasional (None Seen)
[2020-10-30] MEDS ORDERED: KEFLEX500 M1 PO (14:46)
[2020-10-30 15:58] VITALS: BP 158/82
== END 2020-10-30 15:58 | disposition home or self-care (01) ==
LOC: ER 12:23
PROVIDERS: Nurse Practitioner
DX: M54.41 Lumbago with sciatica, right side (principal); I10 Essential (primary) hypertension; E78.5 Hyperlipidemia, unspecified; Z79.899 Other long term (current) drug therapy; Z87.891 Personal history of nicotine dependence

== ENCOUNTER 2021-07-27 03:18 | Inpatient (IN) | payer OTHER, BC ==
[~2021-07-27] VITALS: Ht 149.9 cm; Wt 52.6 kg
[2021-07-27] VITALS (7 sets, daily range): BP systolic 91–123; BP diastolic 54–71
--- NOTE | ~2021-07-27 | EMS ---
[place] [address] EMS Patient Care Report Name: KANIKA GARSIA Room #: 207-P [facility] IN M.R.#: [id number] Admission: 07/27/21 Attend Phys: Chacha Cuevas Discharge: 07/29/21 Date of : 34 Report #: [id number] THIS REPORT FOR: //name// Report Transmitted: 07/30/2021 09:48 EMS Care Summary [place], [place]/[facility] Incident [id number] @ 07/27/2021 02:56 Incident Location [address] [place] [address] Patient KANIKA GARSIA Female, 89 Years 1930 Patient Address [address] [place] [address] Patient History Hypertension (HTN),Hyperlipidemia, Patient Allergies No known allergies, Patient Medications Unknown, Chief Complaint Bright red blood in feces Disposition Transported No Lights/[place] Dispatch Reason Hemorrhage/Laceration Transported To [facility] Narrative Initially dispatched with [facility] for a hemorrhage. Upon EMS arrival patient was found sitting in a chair just inside the door to her apartment, [place] [address] EMS Patient Care Report Name: KANIKA GARSIA Room #: 207-P [facility] IN M.R.#: [id number] Admission: 07/27/21 Attend Phys: Chacha Cuevas Discharge: 07/29/21 Date of : 34 Report #: [id number] obvious signs of distress, CAOx4. Patient stated that she had "a lot" of "bright red blood" in her bowel movement approximately 30 minutes ago. She also reported "a slight stomach ache". Patient was assisted onto the stretcher, secured, and loaded into the ambulance. She was transported to [facility] without incident. Full report was given to RN prior to signing this document. Initial Vitals @03:07P: 84,R: 16,BP: 145/73,Pain: 2/10,GCS: 15,SpO2: 99,Revised Trauma: 12, Assessments @03:02MENTAL:No Abnormalities,SKIN:No Abnormalities,HEENT:Head/Face: No Abnormalities,Eyes: No Abnormalities,Neck/Airway: No Abnormalities,LUNG SOUNDS:Left Lower: MILKA,ABDOMEN:Left Lower: MILKA,PELVIS//GI:Rectal Bleeding,EXTREMITIES:Left Arm: No Abnormalities,Right Arm: No Abnormalities,Left Leg: No Abnormalities,Right Leg: No Abnormalities,PULSE:NEURO:Weakness Right-Sided,Weakness Left-Sided, Impression Gastrointestinal hemorrhage Procedures @03:02 ALS Assessment Response: UnchangedSucceeded @03:12 IV Therapy - Saline Lock 10cc (20 ga) Site: Antecubital-Left Response: UnchangedSucceeded Timeline 02:55,Call Received 02:55,Dispatch Notified 02:56,Dispatched 02:56,En Route 03:00,On Scene 03:02,At Patient 03:02,ALS Assessment,Response: UnchangedSucceeded, 03:07,BP: 145/73 M,PULSE: 84,RR: 16 R,SPO2: 99 Ox,ETCO2: ,BG: ,PAIN: 2,GCS: 15, 03:08,Depart Scene 03:12,IV Therapy - Saline Lock 10cc 20 ga Site: Antecubital-Left,Response: UnchangedSucceeded, 03:14,At Destination 03:22,Call Closed Disclaimer v1.1 Copyright 2020 [employer] This EMS Care Summary contains data elements from the applicable legal record (which may be displayed differently). It is designed to provide pertinent [facility] [address] [place] [address] EMS Patient Care Report Name: KANIKA GARSIA Room #: 207-P DIS IN M.R.#: [id number] Admission: 07/27/21 Attend Phys: Chacha Cuevas Discharge: 07/29/21 Date of : 34 Report #: [id number] information for the following purposes: continuity of care, clinical quality, and state data reporting. The complete legal record is available to ED staff and administrators of the receiving hospital in [employer]'s Patient Tracker. All data is provided "as is."
[~2021-07-27 03:18] MED LIST changes: +KEFLEX500 M1 PO
[2021-07-27 04:53] LABS: CALCIUM 8.6 mg/dL (8.5-10.1); CREATININE 1.3 mg/dL (0.6-1.0); POTASSIUM 4.3 mmol/L (3.5-5.1)
[2021-07-27 04:55] LABS: ABSOLUTE NEUTROPHILS 2.8 thou/uL (1.4-8.2); BASOPHILS 0.5 % (0.0-2.0); EOSINOPHILS 3.2 % (0.0-3.0); HEMATOCRIT 25.5 % (37.0-47.0); HEMOGLOBIN 8.6 gm/dL (12.0-15.0); LYMPHOCYTES 19.4 % (24.0-44.0); MCH 32.2 pg (26.0-34.0); MCHC 33.6 g/dL (28.0-37.0); MONOCYTES 8.1 % (1.0-8.0); PLATELET COUNT 198 thou/uL (150-400); POLYS 68.8 % (36.0-66.0); RBC 2.65 mil/uL (4.20-5.00); RDW 13.3 % (10.5-14.5)
[2021-07-27 05:02] LABS: APTT 25.7 Seconds (24.5-32.8); INR 1.01
[2021-07-27 13:32] LABS: % SATURATION 27 % (20-39); IRON 25 ug/dL (50-170); TIBC 91 ug/dL (250-450)
[2021-07-27 13:59] LABS: FOLIC ACID 2.5 ng/mL (8.6-58.9)
[2021-07-28 04:00] VITALS: BP 119/73
[2021-07-28 05:33] LABS: ABSOLUTE NEUTROPHILS 3.4 thou/uL (1.4-8.2); BASOPHILS 0.8 % (0.0-2.0); EOSINOPHILS 0.4 % (0.0-3.0); HEMOGLOBIN 7.1 gm/dL (12.0-15.0); MCH 32.8 pg (26.0-34.0); MCHC 33.9 g/dL (28.0-37.0); MCV 96.9 fL (80.0-100.0); MONOCYTES 6.5 % (1.0-8.0); PLATELET COUNT 179 thou/uL (150-400); POLYS 68.3 % (36.0-66.0); RBC 2.17 mil/uL (4.20-5.00); RDW 13.5 % (10.5-14.5); WBC 4.9 thou/uL (4.0-11.0)
[2021-07-28 05:43] LABS: CALCIUM 8.8 mg/dL (8.5-10.1); CREATININE 1.1 mg/dL (0.6-1.0); MAGNESIUM 1.9 mg/dL (1.8-2.4); POTASSIUM 3.8 mmol/L (3.5-5.1)
[2021-07-28 07:35] VITALS: BP 128/68
[2021-07-28 11:19] LABS: HEMATOCRIT 22.8 % (37.0-47.0); HEMOGLOBIN 7.2 gm/dL (12.0-15.0)
[2021-07-28 11:35] VITALS: BP 123/67
[2021-07-28 12:34] VITALS: BP 133/66; BP 136/56
[2021-07-28 15:30] VITALS: BP 123/51
[2021-07-28 19:43] LABS: HEMATOCRIT 22.7 % (37.0-47.0); HEMOGLOBIN 7.5 gm/dL (12.0-15.0)
[2021-07-28 20:18] VITALS: BP 146/64
[2021-07-29 04:42] VITALS: BP 138/67
[2021-07-29 05:53] LABS: HEMATOCRIT 23.6 % (37.0-47.0); HEMOGLOBIN 7.8 gm/dL (12.0-15.0); MCH 31.1 pg (26.0-34.0); MCHC 32.9 g/dL (28.0-37.0); MCV 94.4 fL (80.0-100.0); RBC 2.5 mil/uL (4.20-5.00); RDW 15.5 % (10.5-14.5)
[2021-07-29 07:50] VITALS: BP 139/64
[2021-07-29] MEDS ORDERED: MELOXICAM15 MG PO (08:16)
[2021-07-29 11:39] VITALS: BP 104/58
[2021-07-29 12:00] VITALS: BP 140/64
== END 2021-07-29 17:12 | disposition home health service (06) | DRG 378 ==
LOC: ER 03:18 → 2N 05:11 → EROBS 05:11 → 2N 06:11
PROVIDERS: Emergency Medicine; Nurse Practitioner; ADMIT Hospitalist; ATTEND Hospitalist
PROC: 0DJD8ZZ Inspection of Lower Intestinal Tract, Via Natural or Artificial Opening Endoscopic (ICD-10-PCS; principal; 2021-07-28)
PROC: 30233N1 Transfusion of Nonautologous Red Blood Cells into Peripheral Vein, Percutaneous Approach (ICD-10-PCS; principal; 2021-07-28)
DX: K57.31 Diverticulosis of large intestine without perforation or abscess with bleeding (principal); N17.9 Acute kidney failure, unspecified; D62 Acute posthemorrhagic anemia; Z20.822 Contact with and (suspected) exposure to COVID-19; I10 Essential (primary) hypertension; E78.00 Pure hypercholesterolemia, unspecified; E78.5 Hyperlipidemia, unspecified; K59.09 Other constipation; Z60.2 Problems related to living alone; K21.9 Gastro-esophageal reflux disease without esophagitis; Z86.010 Personal history of colon polyps; Z87.891 Personal history of nicotine dependence; Z79.899 Other long term (current) drug therapy; Z28.21 Immunization not carried out because of patient refusal
CPT/HCPCS: 10081; 62110; 62900; 70005